=== PATIENT | male | born 1985 | race Caucasian/White ===

== ENCOUNTER 2022-10-18 08:22 | Emergency (ER) | payer SELFPAY ==
[~2022-10-18] VITALS: Ht 175.3 cm; Wt 81.6 kg
[2022-10-18] MEDS ORDERED: NS IV 1000 ML 1,000 ML IV STA ×2 (08:38→09:37)
[2022-10-18] MEDS ORDERED: LORazepam INJ 2 MG/ML (ATIVAN) VIAL IVP STA (08:38)
[2022-10-18] MEDS ORDERED: PANTOPRAZOLE 40 MG (PROTONIX) VIAL IV STA (08:38)
[2022-10-18] MEDS ORDERED: ONDANSETRON 4 MG/2 ML (SDV) Z0FRAN IVP STA (08:38)
[2022-10-18] MEDS ORDERED: ANTACID SUSP 30 ML UDC (MYLANTA) PO ONE (08:45)
[2022-10-18] MEDS ORDERED: LIDOCAINE 2% VISCOUS 15 ML UDC PO ONE (08:45)
[2022-10-18 08:46] LABS: BASOPHILS % (AUTO) 0 % (0-10); EOSINOPHILS % (AUTO) 0 % (0-10); HEMATOCRIT 41 % (40-54); HEMOGLOBIN 14.7 g/dL (13.3-17.7); LYMPHOCYTES # (AUTO) 1.7 10^3/uL (1.0-4.0); LYMPHOCYTES % (AUTO) 14 % (12-44); MEAN CORPUSCULAR HEMOGLOBIN 32 pg (25-34); MEAN CORPUSCULAR HGB CONC 36 g/dL (32-36); MEAN CORPUSCULAR VOLUME 89 fL (80-99); MEAN PLATELET VOLUME 9.1 fL (9.0-12.2); MONOCYTES # (AUTO) 1.8 10^3/uL (0.0-1.0); MONOCYTES % (AUTO) 15 % (0-12); NEUTROPHILS # (AUTO) 8.4 10^3/uL (1.8-7.8); NEUTROPHILS % (AUTO) 70 % (42-75); PLATELET COUNT 317 10^3/uL (130-400); WHITE BLOOD COUNT 11.9 10^3/uL (4.3-11.0)
--- NOTE | 2022-10-18 08:56 | ED General ---
General Chief Complaint: Chest Pain Stated Complaint: CHEST PAIN Nursing Triage Note: PT AMBULATE TO ROOM FS06 WITHOUT DIFFICULTY WITH C/O CHEST PAIN, N/V STARTING LAST NIGHT. PT REPORTS TAKING METH, POT, AND MDMA YESTERDAY. PT REPORTS HAVING CHEST PAIN ON PREVIOUS OCCASSIONS. Source of Information: Patient Exam Limitations: Intoxication History of Present Illness Date Seen by Provider: Oct 18, 2022 Time Seen by Provider: 08:23 Initial Comments 37-year-old male presenting to the emergency department with complaints of having burning in his chest since last night. He also reports over 7 episodes of nausea and vomiting since last night. He states that he took methamphetamines, marijuana, "Margarette" or MDMA yesterday. He states he lives in [facility] and has been trying to go visit family in [facility] and the GPS had brought him here to [facility]. He states that he was just driving and following with the GPS told him. He had been seen briefly by EMS around 630 this morning due to staff at a local gas station, [place], calling 911 because he was acting like he was under the influence of something and complaining of chest pain and tried to vomit in their trash can. 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 He can not still still and everything seems to be scaring him and he is very paranoid. He denies allergies to medicines. He reports he is to be taking Seroquel and Celexa and Buprenorphine/Naloxone. He follows with [facility] in [facility]. He reports having this burning in his chest previously but states it is not usually as bad as today. He states he tried eating something to see if it would help but it did not make the burning go away. Timing/Duration: 12-24 Hours Severity: Severe Modifying Factors: worse with Eating Associated Systoms: No Cough, No Diaphoresis, No Fever/Chills, No Headaches, No Loss of Appetite, No Malaise; Nausea/Vomiting; No Rash, No Seizure, No Shortness of Air, No Syncope, No Weakness Allergies and Home Medications Allergies Coded Allergies: No Known Drug Allergies (Unverified , 10/18/22) Patient Home Medication List Home Medication List Reviewed: Yes Ondansetron (Ondansetron Odt) 4 Mg Tab.rapdis, 4 MG PO Q6H PRN for NAUSEA/VOMITING Prescribed by: KALA DAVENPORT on 10/18/22935 Pantoprazole Sodium (Pantoprazole Sodium) 40 Mg Tablet.dr, 40 MG PO DAILY Prescribed by: KALA DAVENPORT on 10/18/22935 Review of Systems Review of Systems Constitutional: No chills, No fever EENTM: no symptoms reported Respiratory: no symptoms reported Cardiovascular: see HPI Gastrointestinal: see HPI Genitourinary: no symptoms reported Musculoskeletal: no symptoms reported Skin: no symptoms reported Psychiatric/Neurological: Anxiety Past Ngdcdxt-Bgknzy-Hwyxjq Hx Patient Social History Tobacco Use?: Yes Tobacco type used: Cigarettes Smoking Status: Current Everyday Smoker Smokeless Tobacco Frequency: Never a User Use of E-Cig and/or Vaping dev: No Use of E-Cig and/or Vaping Robert: Never a User Substance use?: Yes Substance type: Methamphetamine, Marijuana, Other Additional substance use comme: MDMA Substance frequency: Couple times a week Alcohol Use?: Yes Alcohol Frequency: Couple times a week Pt feels they are or have been: No Physical Exam Vital Signs Vital Signs - First Documented 10/18/22 08:22 Temp 35.7 Pulse 111 Resp 20 B/P (MAP) 111/66 (81) Pulse Ox 95 O2 Delivery Room Air Capillary Refill : Less Than 3 Seconds Height, Weight, BMI Height: '" Weight: lbs. oz. kg; 26.00 BMI Method: General Appearance: Anxious, Other (Not able to sit still and keeps moving arms and legs in addition to acting paranoid and being scared everytime someone talks or moves in the room) HEENT: PERRL/EOMI; No Moist Mucous Membranes (slightly dry mucus membranes) Neck: Full Range of Motion, Normal Inspection, Non Tender, Supple Respiratory: Chest Non Tender, Lungs Clear, Normal Breath Sounds, No Accessory Muscle Use, No Respiratory Distress Cardiovascular: Normal Peripheral Pulses, Tachycardia Gastrointestinal: Normal Bowel Sounds, No Pulsatile Mass, Non Tender, Soft Rectal: Deferred Extremity: Normal Capillary Refill, Normal Inspection, No Pedal Edema Neurologic/Psychiatric: Alert Skin: Warm/Dry Progress/Results/Core Measures Suspected Sepsis SIRS Temperature: Pulse: 111 Respiratory Rate: 20 Laboratory Tests 10/18/22 08:35: White Blood Count 11.9H Blood Pressure 111 /66 Mean: 81 Laboratory Tests 10/18/22 08:35: Creatinine 1.70H, INR Comment 1.0, Platelet Count 317, Total Bilirubin 1.0 Results/Orders Lab Results Laboratory Tests Test 10/18/22 08:35 Range/Units White Blood Count 11.9 H 4.3-11.0 10^3/uL Red Blood Count 4.61 4.30-5.52 10^6/uL Hemoglobin 14.7 13.3-17.7 g/dL Hematocrit 41 40-54 % Mean Corpuscular Volume 89 80-99 fL Mean Corpuscular Hemoglobin 32 25-34 pg Mean Corpuscular Hemoglobin Concent 36 32-36 g/dL Red Cell Distribution Width 12.4 10.0-14.5 % Platelet Count 317 130-400 10^3/uL Mean Platelet Volume 9.1 9.0-12.2 fL Immature Granulocyte % (Auto) 0 % Neutrophils (%) (Auto) 70 42-75 % Lymphocytes (%) (Auto) 14 12-44 % Monocytes (%) (Auto) 15 H 0-12 % Eosinophils (%) (Auto) 0 0-10 % Basophils (%) (Auto) 0 0-10 % Neutrophils # (Auto) 8.4 H 1.8-7.8 10^3/uL Lymphocytes # (Auto) 1.7 1.0-4.0 10^3/uL Monocytes # (Auto) 1.8 H 0.0-1.0 10^3/uL Eosinophils # (Auto) 0.0 0.0-0.3 10^3/uL Basophils # (Auto) 0.0 0.0-0.1 10^3/uL Immature Granulocyte # (Auto) 0.0 0.0-0.1 10^3/uL Prothrombin Time 13.9 12.2-14.7 SEC INR Comment 1.0 0.8-1.4 Activated Partial Thromboplast Time 30 24-35 SEC Sodium Level 132 L 135-145 MMOL/L Potassium Level 4.0 3.6-5.0 MMOL/L Chloride Level 90 L 98-107 MMOL/L Carbon Dioxide Level 23 21-32 MMOL/L Anion Gap 19 H 5-14 MMOL/L Blood Urea Nitrogen 43 H 7-18 MG/DL Creatinine 1.70 H 0.60-1.30 MG/DL Estimat Glomerular Filtration Rate 52 BUN/Creatinine Ratio 25 Glucose Level 163 H 70-105 MG/DL Calcium Level 10.8 H 8.5-10.1 MG/DL Corrected Calcium 8.5-10.1 MG/DL Magnesium Level 2.2 1.6-2.4 MG/DL Total Bilirubin 1.0 0.1-1.0 MG/DL Aspartate Amino Transf (AST/SGOT) 23 5-34 U/L Alanine Aminotransferase (ALT/SGPT) 19 0-55 U/L Alkaline Phosphatase 130 40-136 U/L Troponin I < 0.30 <0.30 NG/ML Pro-B-Type Natriuretic Peptide 43.7 <125.0 PG/ML Total Protein 7.7 6.4-8.2 GM/DL Albumin 4.7 H 3.2-4.5 GM/DL Lipase 24 8-78 U/L My Orders Orders - KALA DAVENPORT MD Cbc With Automated Diff (10/18/22 08:38) Magnesium (10/18/22 08:38) Chest 1 View Ap/Pa Only (10/18/22 08:38) Ekg Tracing (10/18/22 08:38) Comprehensive Metabolic Panel (10/18/22 08:38) Protime With Inr (10/18/22 08:38) Partial Thromboplastin Time (10/18/22 08:38) O2 (10/18/22 08:38) Monitor-Rhythm Ecg Trace Only (10/18/22 08:38) Ed Iv/Invasive Line Start (10/18/22 08:38) Lipase (10/18/22 08:38) Troponin I Fs (10/18/22 08:38) Probnp Fs (10/18/22 08:38) Ns Iv 1000 Ml (Sodium Chloride 0.9%) (10/18/22 08:38) Pantoprazole Injection (Protonix Injecti (10/18/22 08:38) Lorazepam Injection (Ativan Injection) (10/18/22 08:38) Ondansetron Injection (Zofran Injectio (10/18/22 08:38) Lidocaine 2% Viscous 15 Ml (Xylocaine Vi (10/18/22 08:45) Antacid Suspension (Mylanta Suspension (10/18/22 08:45) Metoclopramide Injection (Reglan Injecti (10/18/22 09:15) Diphenhydramine Injection (Benadryl Inje (10/18/22 09:15) Ns Iv 1000 Ml (Sodium Chloride 0.9%) (10/18/22 09:37) Medications Given in ED Current Medications Medications Dose Ordered Sig/Marisel Route Start Time Stop Time Status Last Admin Dose Admin Al Hydrox/Mg Hydrox/Simethicone 30 ml ONCE ONCE PO 10/18/22 08:45 10/18/22 08:46 DC 10/18/22 08:49 30 ML Lidocaine HCl 15 ml ONCE ONCE PO 10/18/22 08:45 10/18/22 08:46 DC 10/18/22 08:49 15 ML Vital Signs/I&O 10/18/22 10/18/22 08:22 08:22 Temp 35.7 Pulse 111 Resp 20 B/P (MAP) 111/66 (81) Pulse Ox 95 O2 Delivery Room Air Room Air Capillary Refill : Less Than 3 Seconds Blood Pressure Mean: 81 Progress Note #1: Progress Note Potential diagnosis of substance abuse, GERD, reflux, esophagitis, esophageal s pasms, anxiety, pneumonia, myocardial infarction, acute coronary syndrome secondary to substance abuse. Obtain electrocardiogram and place patient on cardiac crane follower. My initial interpretation of his cardiac crane follower shows sinus tachycardia without ST elevation or ectopy. Establish peripheral IV access and send labs for complete blood count, comprehensive metabolic profile, coagulation factors, magnesium, lipase, troponin, proBNP, urinalysis, urine drug screen. Administer normal saline 1 L IV fluid bolus for hydration. Zofran 4 mg IV for nausea and vomiting, pantoprazole 40 mg IV for possible gastritis, GI cocktail by mouth for possible GERD, Ativan 1 mg IV to help with anxiety and substance abuse. Progress Note #2: Time: 09:08 Progress Note I have reviewed the radiologist report on the 1 view chest x-ray. He had no acute process seen on the x-ray. There is no prior imaging for comparison. His complete blood count shows white blood cell count at the upper limit of normal at 11.9. His hemoglobin was normal at 14.7 and normal platelets of 317. His coagulation factors were normal with a pro time of 13.9, INR of 1, PTT of 30. He was not showing elevation or signs of coagulopathy off of these. Progress Note #3: Time: :25 Progress Note Patient was dramatically and violently retching and trying to force himself to throw up. Rather than use the green emesis bag he had gotten up out of bed and was using a trash can. Added Reglan 10 mg IV for nausea and Benadryl 25 mg IV for nausea and agitation. His comprehensive metabolic profile came back showing a normal sodium of 132, potassium of 4, his BUN was elevated to 43 and creatinine to 1.7. Glucose was mildly elevated to 163. After having more than 12 hours of burning pain in his chest his delta troponin is less than 0.3. His proBNP was normal at 43.7. He also had a normal lipase of 24 with normal liver enzymes. His symptoms seem to be related back to possibly GERD and substance abuse as his lab work and chest x-ray and electrocardiogram did not demonstrate a life-threatening medical condition for his symptoms. Since he does have the elevated BUN and creatinine in the second liter of normal saline will be added for additional hydration. Anticipate discharging the patient after the additional fluid. Can continue nausea medicine as well as acid nremt. Encouraged to check back with his regular providers in [place] and they may need to get him set up for an EGD or scope to look for ulcers or irritation to the stomach lining. Encouraged to avoid using drugs or alcohol as they could be causing his symptoms. Progress Note #4: Progress Note When reviewing results with the patient and he does report he is doing better. He denies having any further chest pain and has been tolerating oral intake in the ED. He was advised to drink plenty of fluids and follow a liquid diet for 24 hours and then he could advance to a bland diet. Prescriptions for Protonix 40 mg p.o. daily x30 days for gastritis and GERD was sent to [facility] in addition to ondansetron ODT 4 mg p.o. every 6 hours. Nausea and vomiting #8. Encouraged to try and get established back with his providers at [facility] in [place]. Advised to avoid drugs and alcohol as they will worsen his symptoms ECG Initial ECG Impression Date: Oct 18, 2022 Initial ECG Impression Time: 08:31 Initial ECG Rate: 102 Initial ECG Rhythm: S.Tach Initial ECG Comparisson: No Previous ECG Available Comment On my personal interpretation and review of the electrocardiogram shows sinus tachycardia with a heart rate of 102 bpm. OR interval 172 ms. QT interval 345 ms with a QTc interval 404 ms. He has upsloping of the ST segment but there is no ST elevation. There is no prior tracing available for comparison. Diagnostic Imaging Diagonstic Imaging: Xray Plain Films/CT/US/NM/MRI: chest Comments NAME: ELIZA HARTMANN [facility] REC#: [id number] PT STATUS: REG ER : 1985 PHYSICIAN: KALA DAVENPORT MD ADMIT DATE: 10/18/22/ER FS Draft Date of Exam:10/18/22 CHEST 1 VIEW AP/PA ONLY INDICATION: Chest pain as well as nausea and vomiting. Time of Exam: 8:55 AM No prior studies are available for comparison. Findings: The heart size is normal. The pulmonary vascularity is unremarkable. The lungs are clear. No infiltrate, effusion or pneumothorax is detected. Impression: No acute cardiopulmonary process is detected. Dictated on workstation # [id number] Dict: 10/18/22 0903 Trans: 10/18/22 09 [facility] [id number] Interpreted by: ALEXANDR GROVER MD Electronically signed by: Reviewed: Reviewed by Me Departure Impression Primary Impression: Burning chest pain Additional Impressions: Methamphetamine abuse Marijuana abuse Ecstasy abuse GERD with esophagitis Qualified Codes: K21.01 - Gastro-esophageal reflux disease with esophagitis, with bleeding Dehydration Disposition: HOME, SELF-CARE Condition: Improved Departure-Patient Inst. Decision time for Depature: :28 Referrals: NO,LOCAL PHYSICIAN (PCP/Family) Primary Care Physician Patient Instructions: Acid Reflux and GERD in Adults (DC), Marijuana Use and Addiction (DC), Substance Use Disorder ED Add. Discharge Instructions: Do not use drugs or alcohol as these can make your burning in the chest worse as well as the nausea and vomiting. Follow up with your regular provider in [place]. They may need to set up a test where the doctor uses a camera on a scope to look at the lining of your throat, esophagus and stomach. Try to keep drinking plenty of water and electrolyte drinks to help with hydration. Take the nausea medicine to try and help keep your stomach settled and take the acid reducing medicine to help with the burning pain and vomiting. All discharge instructions reviewed with patient and/or family. Voiced understanding. Scripts Pantoprazole Sodium (Pantoprazole Sodium) 40 Mg Tablet. 40 MG PO DAILY for GERD for 30 Days, #30 TAB 0 Refills Prov: KALA DAVENPORT MD 10/18/22 Ondansetron (Ondansetron Odt) 4 Mg Tab.rapdis 4 MG PO Q6H PRN for NAUSEA/VOMITING for 2 Days, #8 TAB 0 Refills Prov: KALA DAVENPORT MD 10/18/22 KALA DAVENPORT MD Oct 18, 2022 08:56
[2022-10-18 09:02] LABS: PROTHROMBIN TIME PATIENT 13.9 SEC (12.2-14.7)
--- NOTE | 2022-10-18 09:06 | Diagnostic Imaging Report ---
INDICATION: Chest pain as well as nausea and vomiting. Time of Exam: 8:55 AM No prior studies are available for comparison. Findings: The heart size is normal. The pulmonary vascularity is unremarkable. The lungs are clear. No infiltrate, effusion or pneumothorax is detected. Impression: No acute cardiopulmonary process is detected. Dictated by: Dictated on workstation # [id number]
[2022-10-18] MEDS ORDERED: diphenhydrAMINE 50 MG/ML INJ (BENADRYL) IVP STA (09:15)
[2022-10-18] MEDS ORDERED: METOCLOPRAMIDE INJ 10 MG/2 ML (REGLAN) IVP STA (09:15)
[2022-10-18 09:25] LABS: BUN/CREATININE RATIO 25; CALCIUM 10.8 MG/DL (8.5-10.1); CARBON DIOXIDE 23 MMOL/L (21-32); CHLORIDE 90 MMOL/L (98-107); GFR ESTIMATED 52; GLUCOSE 163 MG/DL (70-105); MAGNESIUM 2.2 MG/DL (1.6-2.4); SODIUM 132 MMOL/L (135-145)
[2022-10-18 09:26] LABS: ALANINE AMINOTRANSFERASE 19 U/L (0-55); ALBUMIN 4.7 GM/DL (3.2-4.5); ALKALINE PHOSPHATASE 130 U/L (40-136); LIPASE 24 U/L (8-78); TOTAL PROTEIN 7.7 GM/DL (6.4-8.2)
[2022-10-18] MEDS ORDERED: ONDA4TAB11 PO (09:36)
[2022-10-18] MEDS ORDERED: PANT40TA52 PO (09:36)
[2022-10-18 10:41] VITALS: BP 134/75
== END 2022-10-18 10:41 | disposition home or self-care (01) ==
LOC: ER FS 08:24
DX: K21.00 Gastro-esophageal reflux disease with esophagitis, without bleeding (principal); E86.0 Dehydration; F15.10 Other stimulant abuse, uncomplicated; F12.10 Cannabis abuse, uncomplicated; F16.10 Hallucinogen abuse, uncomplicated; R73.9 Hyperglycemia, unspecified; Z79.899 Other long term (current) drug therapy; F17.210 Nicotine dependence, cigarettes, uncomplicated; Z28.310 Unvaccinated for COVID-19
CPT/HCPCS: 36415; 71045; 80053; 83690; 83735; 83880; 84484; 85025; 85610; 85730; 93005; 93041